=== PATIENT | male | born 1935 | race Caucasian/White ===

== ENCOUNTER → 2018-03-26 | Outpatient (CLI) | payer OTHER ==
[~2018-03-26] MED LIST: ASCO500 PO; ASPI81CH PO; Androgel2.5 GM TD; BAYER CHEWABLE81 MG PO; BETA.05TC TOP; CHOL10002 PO; CIPR500 PO; CLOB.05TC TOP; Chondroitin Su250 MG PO; DOCSEN PO; Fiber Therapy0.52 GM PO; GLUC500 PO; HYDR1TAB94 PO; Lysine1000 MG PO; TADA10TA PO; TESTOSTERONE; UBID100 PO; [UNRECOGNIZED DRUG - OTHER]
== END | disposition home or self-care (01) ==
LOC: PLD 14:05 → LAB SHORT 14:05
DX: C44.212 Basal cell carcinoma of skin of right ear and external auricular canal (principal)
CPT/HCPCS: 88305

== ENCOUNTER → 2018-04-08 | Outpatient (CLI) | payer OTHER | END | disposition home or self-care (01) | LOC: LAB SHORT 14:27 → PLD 14:27 | DX: C44.41 Basal cell carcinoma of skin of scalp and neck (principal) | CPT/HCPCS: 88305 ==

== ENCOUNTER 2018-06-25 07:58 | Day surgery (SDC) | payer OTHER ==
[~2018-06-25] VITALS: Ht 172.7 cm; Wt 84.9 kg
[~2018-06-25 07:58] MED LIST changes: +Cialis20 MG PO
[2018-06-25] MEDS ORDERED: GABA800 PO (08:52)
== END 2018-06-25 10:10 | disposition home or self-care (01) ==
LOC: ORSCSDS 07:58
PROVIDERS: Ophthalmology
PROC: 08RK3JZ Replacement of Left Lens with Synthetic Substitute, Percutaneous Approach (ICD-10-PCS; principal; 2018-06-25 09:30)
DX: H25.12 Age-related nuclear cataract, left eye (principal); Z79.899 Other long term (current) drug therapy
CPT/HCPCS: J2001; J2250; J3010; J3301; J7120; V2632

== ENCOUNTER → 2018-09-02 | Outpatient (CLI) | payer OTHER ==
[~2018-09-02] MED LIST changes: +GABA800 PO
[2018-09-02 10:45] LABS: BASOPHILS ABSOLUTE AUTO 0.06 K/mm3 (0.00-0.23); BASOPHILS PERCENT AUTO 0 % (0-2); EOSINOPHILS ABSOLUTE AUTO 0.13 K/mm3 (0.00-0.68); EOSINOPHILS PERCENT AUTO 1 % (0-6); Hematocrit 47.7 % (37.0-53.0); Hemoglobin 16.2 g/dL (13.5-17.5); IMMATURE GRAN ABSOLUTE AUTO 0.09 K/mm3 (0.00-0.10); IMMATURE GRAN PERCENT AUTO 1 % (0-1); LYMPHOCYTES ABSOLUTE AUTO 0.55 K/mm3 (0.84-5.20); LYMPHOCYTES PERCENT AUTO 3 % (21-46); MONOCYTES ABSOLUTE AUTO 0.99 K/mm3 (0.16-1.47); MONOCYTES PERCENT AUTO 6 % (4-13); Mean Corpuscular HGB 32.6 pg (26.0-34.0); Mean Corpuscular Volume 96 fL (80-100); Mean Platelet Volume 10.3 fL (9.1-12.4); NEUTROPHILS ABSOLUTE AUTO 15.92 K/mm3 (1.96-9.15); NEUTROPHILS PERCENT AUTO 90 % (41-73); Platelet Count 250 K/mm3 (150-400); RDW Standard Deviation 45.5 fL (35.1-46.3); Red Blood Cell Count 4.97 M/mm3 (4.30-5.90); White Blood Cell Count 17.74 K/mm3 (4.00-11.30)
[2018-09-02 10:55] LABS: Alanine Aminotransfer (ALT/SGP 25 U/L (12-78); Albumin, Blood 4.2 g/dL (3.4-5.0); Albumin/Globulin Ratio 1.1 (0.8-1.8); Alk Phos 94 U/L (40-126); Anion Gap 11 mmol/L (6-16); Aspartate Aminotrans (AST/SGOT 19 U/L (12-37); Bilirubin, Total 0.5 mg/dL (0.1-1.0); Blood Urea Nitrogen 14 mg/dL (8-24); Bun/Creatinine Ratio 15.1 (12.0-20.0); CO2, Blood 26 mmol/L (21-32); Calcium, Blood 9.8 mg/dL (8.5-10.1); Chloride, Blood 101 mmol/L (98-108); Creatinine, Blood 0.93 mg/dL (0.60-1.20); Glomerular Filtration Rate >60 (60-); Glucose, Blood 128 mg/dL (70-99); Sodium, Blood 138 mmol/L (136-145); Total Protein, Blood 8.2 g/dL (6.4-8.2)
== END | disposition home or self-care (01) ==
LOC: LAB EV 10:39 → LAB SHORT 10:39
PROVIDERS: Family Medicine
DX: R10.9 Unspecified abdominal pain (principal)
CPT/HCPCS: 80053; 83690; 85025

== ENCOUNTER → 2021-06-14 | Outpatient (CLI) | payer OTHER ==
[~2021-06-14] MED LIST changes: +B-100 COMPLEX100 MG PO; +CO Q10100 MG PO; +DONEPEZIL HCL5 M2 PO; +DULO60 PO; +DULOXETINE HCL60 M1 PO; +ROSUVASTATIN CAL5 MG PO; +SILD25T PO; +VITAMIN B125000 MC1 PO; +VITAMIN D325 MC3 PO
== END | disposition home or self-care (01) ==
LOC: PLD 07:55 → LAB SHORT 07:55
DX: C44.529 Squamous cell carcinoma of skin of other part of trunk (principal)
CPT/HCPCS: 88305

== ENCOUNTER 2023-02-11 09:48 | Inpatient (IN) | payer OTHER, MEDICARE ==
[2023-02-11] VITALS (14 sets, daily range): BP systolic 118–143; BP diastolic 63–76
[~2023-02-11] VITALS: Ht 172.7 cm; Wt 93.7 kg
[2023-02-11] MEDS ORDERED: GABA100 PO (10:00)
[2023-02-11] MEDS ORDERED: MEMANTINE HCL511 PO (10:00)
--- NOTE | 2023-02-11 13:07 | NUR ---
ARRIVAL SUMMARY PATIENT ARRIVED TO THE FLOOR ON [facility], TRANSFER FROM [facility] TO BED. PATIENT REPORTS LITTLE PAIN AT THIS TIME. VITALS TAKEN. FAMILY AT BEDSIDE.
--- NOTE | 2023-02-11 13:17 | NUR ---
CALLED [facility] [facility]- REPORTS THAT SURGEON WILL ROUND ON PATIENT.
[2023-02-11 13:21] LABS: Hematocrit 47.8 % (37.0-53.0); Hemoglobin 16.1 g/dL (13.5-17.5); Mean Corpuscular HGB Conc 33.7 g/dL (31.5-36.5); Mean Corpuscular Volume 95 fL (80-100); Mean Platelet Volume 10.7 fL (9.1-12.4); Platelet Count 235 K/mm3 (150-400); RDW Coefficient Variation 12.6 % (11.7-14.2); Red Blood Cell Count 5.03 M/mm3 (4.30-5.90); White Blood Cell Count 15.32 K/mm3 (4.00-11.30)
[2023-02-11 13:34] LABS: Prothrombin Time Results 10.5 Sec (9.7-11.5)
[2023-02-11 13:52] LABS: Albumin, Blood 3.6 g/dL (3.4-5.0); Bilirubin, Total 0.7 mg/dL (0.1-1.0); Bun/Creatinine Ratio 15.5 (12.0-20.0); Calcium, Blood 9.1 mg/dL (8.5-10.1); Creatinine, Blood 0.77 mg/dL (0.60-1.20); Globulin, Blood 3.7 g/dL (2.2-4.0); Potassium, Blood 4.3 mmol/L (3.5-5.5); Total Protein, Blood 7.3 g/dL (6.4-8.2)
--- NOTE | 2023-02-11 18:46 | NUR ---
PT ARRIVED BACK TO THE FLOOR AT APPROX 1805. BASELINE CONFUSION. A/O X3. NO PAIN REPORTED. VITAL SIGNS TAKEN. POD0 L UMU HIP- GAUZE AND TAPE IN PLACE, C/D/I. CURRENTLY AWAITING POST OP VOID. WILL REPORT TO ONCOMING RN.
[2023-02-12 02:29] VITALS: BP 124/66
[2023-02-12 06:11] LABS: BASOPHILS ABSOLUTE AUTO 0.02 K/mm3 (0.00-0.23); BASOPHILS PERCENT AUTO 0 % (0-2); EOSINOPHILS PERCENT AUTO 0 % (0-6); Hemoglobin 14.5 g/dL (13.5-17.5); IMMATURE GRAN PERCENT AUTO 1 % (0-1); LYMPHOCYTES ABSOLUTE AUTO 0.53 K/mm3 (0.84-5.20); LYMPHOCYTES PERCENT AUTO 3 % (21-46); MONOCYTES ABSOLUTE AUTO 0.89 K/mm3 (0.16-1.47); MONOCYTES PERCENT AUTO 5 % (4-13); Mean Corpuscular HGB 32.2 pg (26.0-34.0); Mean Corpuscular HGB Conc 34.5 g/dL (31.5-36.5); Mean Corpuscular Volume 93 fL (80-100); Mean Platelet Volume 11.1 fL (9.1-12.4); NEUTROPHILS ABSOLUTE AUTO 17.85 K/mm3 (1.96-9.15); NEUTROPHILS PERCENT AUTO 92 % (41-73); Platelet Count 225 K/mm3 (150-400); RDW Coefficient Variation 12.3 % (11.7-14.2); RDW Standard Deviation 42.5 fL (35.1-46.3); White Blood Cell Count 19.39 K/mm3 (4.00-11.30)
[2023-02-12 06:32] LABS: Albumin/Globulin Ratio 0.9 (0.8-1.8); Bilirubin, Total 0.6 mg/dL (0.1-1.0); Bun/Creatinine Ratio 19.2 (12.0-20.0); Calcium, Blood 8.4 mg/dL (8.5-10.1); Creatinine, Blood 0.89 mg/dL (0.60-1.20); Globulin, Blood 3.5 g/dL (2.2-4.0); Magnesium, Blood 2.1 mg/dL (1.6-2.4); Potassium, Blood 4.7 mmol/L (3.5-5.5); Total Protein, Blood 6.5 g/dL (6.4-8.2)
[2023-02-12 06:58] VITALS: BP 122/86
--- NOTE | 2023-02-12 07:56 | NUR ---
SHIFT SUMMARY PT HAS BEEN ABLE TO SLEEP WITH NO PROBLEMS, ORIENTED X3, VSS, 3 L/MIN VIA NC, SPO2 >95%, DRSG C/D/I, PT DENIES PAIN, CIRC WNL, REPORT GIVEN TO DAY RN, PT'S SON IN THE ROOM THIS AM, CIGHT IN REACH
[2023-02-12 16:28] VITALS: BP 108/62
--- NOTE | 2023-02-12 18:01 | NUR ---
SHIFT SUMMARY PT WAS ABLE TO WORK w/ BOTH PT & OT. HAS SAT UP IN CHAIR. SURG SITE WNL w/ MILD SWELLING. ICE PACK APPLIED TWICE DURING THIS SHIFT. DENIES PAIN THIS AFTERNOON BUT STILL ENCOURAGED TYLENOL.
[2023-02-12 19:27] VITALS: BP 112/57
--- NOTE | 2023-02-12 21:39 | NUR ---
SOB PT BED ALARM WENT OFF AND PT ATTEMPTING TO GET OOB. PT APPEARED TO BE SHORT OF BREATH, SPEAKING IN BROKEN SENTENCES, TACHYPNIC, AND AUDIBLE WHEEZING HEARD. SPO2 SPOT CHECKED AND WAS 91-94% ON RA. ASSISTED PT BACK INTO BED WITH HOB ELEVATED. PT WAS ABLE TO RECOVER WITHIN A FEW MINUTES. RT NOTIFIED OF PT STATUS AND THIS RN REQUESTED RT TO ASSESS PT. COPD PROTOCOL ORDER IN PLACE.
[2023-02-13 02:18] VITALS: BP 158/71
--- NOTE | 2023-02-13 04:46 | NUR ---
SHIFT SUMMARY S/P LEFT UMU HIP. AQUACEL DRESSING REMAINS CDI. ICE BAG TO HIP PRN. TYLENOL FOR PAIN PRN. UP TO SIDE OF BED TO STAND TO USE URINAL WITH 2 ASSIST USING FWW + GB. PT GETS VERY SOB WITH EXERTION. DOES TAKE A FEW MINUTES TO RECOVER ONCE AT REST. SATS STABLE ON RA. PT PLEASANTLY CONFUSED BUT REDIRECTED EASILY. BED ALARM IN PLACE.
[2023-02-13 05:51] LABS: BASOPHILS ABSOLUTE AUTO 0.04 K/mm3 (0.00-0.23); BASOPHILS PERCENT AUTO 0 % (0-2); EOSINOPHILS ABSOLUTE AUTO 0.35 K/mm3 (0.00-0.68); EOSINOPHILS PERCENT AUTO 2 % (0-6); Hematocrit 41.3 % (37.0-53.0); Hemoglobin 14.1 g/dL (13.5-17.5); IMMATURE GRAN ABSOLUTE AUTO 0.11 K/mm3 (0.00-0.10); IMMATURE GRAN PERCENT AUTO 1 % (0-1); LYMPHOCYTES ABSOLUTE AUTO 1.19 K/mm3 (0.84-5.20); LYMPHOCYTES PERCENT AUTO 8 % (21-46); MONOCYTES PERCENT AUTO 9 % (4-13); Mean Corpuscular HGB Conc 34.1 g/dL (31.5-36.5); Mean Corpuscular Volume 94 fL (80-100); Mean Platelet Volume 11.6 fL (9.1-12.4); NEUTROPHILS ABSOLUTE AUTO 12.04 K/mm3 (1.96-9.15); NEUTROPHILS PERCENT AUTO 80 % (41-73); Platelet Count 162 K/mm3 (150-400); RDW Coefficient Variation 12.8 % (11.7-14.2); Red Blood Cell Count 4.41 M/mm3 (4.30-5.90); White Blood Cell Count 15.13 K/mm3 (4.00-11.30)
[2023-02-13 05:52] LABS: Albumin, Blood 2.9 g/dL (3.4-5.0); Anion Gap 5 mmol/L (6-16); Blood Urea Nitrogen 21 mg/dL (8-24); Bun/Creatinine Ratio 23.8 (12.0-20.0); CO2, Blood 26 mmol/L (21-32); Calcium, Blood 8.1 mg/dL (8.5-10.1); Chloride, Blood 108 mmol/L (98-108); Creatinine, Blood 0.88 mg/dL (0.60-1.20); Glomerular Filtration Rate 84 (60-); Glucose, Blood 130 mg/dL (70-99); Phosphorus, Blood 2.3 mg/dL (2.5-4.9); Potassium, Blood 3.9 mmol/L (3.5-5.5); Sodium, Blood 139 mmol/L (136-145)
[2023-02-13 07:12] VITALS: BP 123/70
[2023-02-13 14:35] VITALS: BP 129/75
--- NOTE | 2023-02-13 15:54 | NUR ---
REPORT CALLED TO [facility]
--- NOTE | 2023-02-13 16:11 | NUR ---
TO REHAB VIA [facility]
== END 2023-02-13 16:11 | DRG 522 ==
LOC: ER 09:48 → SURS 11:17
PROVIDERS: Family Medicine; Orthopaedic Surgery; Student in an Organized Health Care Education/Training Program; ADMIT Hospitalist
PROC: 0SRS0J9 Replacement of Left Hip Joint, Femoral Surface with Synthetic Substitute, Cemented, Open Approach (ICD-10-PCS; principal; 2023-02-11 13:00)
DX: S72.002A Fracture of unspecified part of neck of left femur, initial encounter for closed fracture (principal); S50.312A Abrasion of left elbow, initial encounter; S50.311A Abrasion of right elbow, initial encounter; N40.0 Benign prostatic hyperplasia without lower urinary tract symptoms; E78.5 Hyperlipidemia, unspecified; W18.30XA Fall on same level, unspecified, initial encounter; Z96.641 Presence of right artificial hip joint; Z96.611 Presence of right artificial shoulder joint; J44.9 Chronic obstructive pulmonary disease, unspecified; G62.9 Polyneuropathy, unspecified; R41.3 Other amnesia; Z85.46 Personal history of malignant neoplasm of prostate; Z87.891 Personal history of nicotine dependence
CPT/HCPCS: 36415; 71045; 72170; 73502; 80053; 80069; 83735; 85025; 85027; 85610; 94760; 97110; 97116; 97162; 97166; 97530; 97535; 99284-25; A9270; C1713; C1776; J0171; J0690; J0735; J1100; J1170; J1650; J1885; J2405; J2704; J2795; J3010; J7060; J7120

== ENCOUNTER 2023-02-20 05:59 | Inpatient (IN) | payer OTHER, MEDICARE ==
[~2023-02-20] VITALS: Ht 172.7 cm; Wt 92.5 kg
[~2023-02-20 05:59] MED LIST changes: +GABA100 PO; +MEMANTINE HCL511 PO
[2023-02-20 06:51] LABS: BASOPHILS PERCENT AUTO 1 % (0-2); EOSINOPHILS ABSOLUTE AUTO 0.05 K/mm3 (0.00-0.68); EOSINOPHILS PERCENT AUTO 0 % (0-6); Hematocrit 41.5 % (37.0-53.0); Hemoglobin 14.1 g/dL (13.5-17.5); IMMATURE GRAN ABSOLUTE AUTO 0.19 K/mm3 (0.00-0.10); IMMATURE GRAN PERCENT AUTO 1 % (0-1); LYMPHOCYTES ABSOLUTE AUTO 0.44 K/mm3 (0.84-5.20); LYMPHOCYTES PERCENT AUTO 3 % (21-46); MONOCYTES ABSOLUTE AUTO 1.78 K/mm3 (0.16-1.47); MONOCYTES PERCENT AUTO 12 % (4-13); Mean Corpuscular HGB 32.2 pg (26.0-34.0); Mean Corpuscular Volume 95 fL (80-100); NEUTROPHILS ABSOLUTE AUTO 12.13 K/mm3 (1.96-9.15); NEUTROPHILS PERCENT AUTO 83 % (41-73); Platelet Count 310 K/mm3 (150-400); RDW Coefficient Variation 12.8 % (11.7-14.2); RDW Standard Deviation 44.1 fL (35.1-46.3); Red Blood Cell Count 4.38 M/mm3 (4.30-5.90); White Blood Cell Count 14.69 K/mm3 (4.00-11.30)
[2023-02-20 06:59] LABS: Albumin/Globulin Ratio 0.7 (0.8-1.8); Bilirubin, Direct 0.2 mg/dL (0.0-0.3); Bilirubin, Indirect 0.3 mg/dL (0.1-0.7); Bilirubin, Total 0.5 mg/dL (0.1-1.0); Bun/Creatinine Ratio 18.4 (12.0-20.0); Creatinine, Blood 1.03 mg/dL (0.60-1.20); Globulin, Blood 4.3 g/dL (2.2-4.0); Magnesium, Blood 2.3 mg/dL (1.6-2.4); Phosphorus, Blood 2.6 mg/dL (2.5-4.9); Potassium, Blood 4.9 mmol/L (3.5-5.5); Total Protein, Blood 7.3 g/dL (6.4-8.2)
[2023-02-20 07:02] LABS: Base Excess Venous -0.8 mmol/L; Bicarbonate Venous 22.8 mmol/L (24.0-30.0); PCO2 Venous 44.1 mmHg (38-42); pH Blood Venous 7.36 (7.34-7.37)
[2023-02-20] MEDS ORDERED: SULTRIDS PO (07:20)
[2023-02-20] MEDS ORDERED: DULO60 PO (07:21)
[2023-02-20 07:43] LABS: International Normalized Ratio 1.03; Prothrombin Time Results 10.8 Sec (9.7-11.5)
[2023-02-20 07:48] LABS: Influenza A, PCR NEGATIVE (NEGATIVE); Influenza B, PCR NEGATIVE (NEGATIVE); Resp Syncytial Virus, PCR NEGATIVE (NEGATIVE); SARS-Cov-2 (COVID-19) PCR, MMC NEGATIVE (NEGATIVE)
[2023-02-20 08:31] LABS: Source, Urine Clean Catch
[2023-02-20 08:38] LABS: Bilirubin, Urine Neg (Neg); Blood, Urine 3+ (Neg); Glucose Qualitative, Urine Neg (Neg); Ketones, Urine 3+ (Neg); Leukocyte Esterase, Urine Neg (Neg); Nitrite, Urine Neg (Neg); Protein, Urine 1+ (Neg); Urobilinogen, Urine NORM (Normal)
[2023-02-20 08:48] LABS: Appearance, Urine Hazy (Clear); Bacteria Not Seen /hpf; Color, Urine Yellow (P-Yellow); Squamous Epithelial Cells Rare /hpf (Few); White Blood Cells, Urine Not Seen /hpf (0-5)
[2023-02-20 10:20] LABS: Adenovirus Not Detected (NOT DETECT); Bordetella pertussis Not Detected (NOT DETECT); Chlamydophila pneumoniae Not Detected (NOT DETECT); Coronavirus 229E Not Detected (NOT DETECT); Coronavirus HKU1 Not Detected (NOT DETECT); Coronavirus NL63 Not Detected (NOT DETECT); Coronavirus OC43 Not Detected (NOT DETECT); Human Metapneumovirus Not Detected (NOT DETECT); Human Rhinovirus/Enterovirus Not Detected (NOT DETECT); Influenza A/2009-H1 Not Detected (NOT DETECT); Influenza A/H1 Not Detected (NOT DETECT); Influenza A/H3 Not Detected (NOT DETECT); Influenza B Not Detected (NOT DETECT); Mycoplasma pneumoniae Not Detected (NOT DETECT); Parainfluenza Virus 1 Not Detected (NOT DETECT); Parainfluenza Virus 2 Not Detected (NOT DETECT); Parainfluenza Virus 3 Not Detected (NOT DETECT); Parainfluenza Virus 4 Not Detected (NOT DETECT); Respiratory Syncytial Virus Not Detected (NOT DETECT); SARS-Cov-2 (COVID-19), BioFire Not Detected (NOT DETECT)
[2023-02-20 14:16] VITALS: BP 130/82
--- NOTE | 2023-02-20 18:43 | NUR ---
PT ARRIVED TO THE MEDICAL FLOOR TODAY FROM THE ER VIA GURNEY. PT IS A/OX3, SLOW TO RESPOND. PT WAS SHAKING VIGOROUSLY, ORAL TEMP WAS TAKEN PT WAS AFEBRILE. WARM BLANKETS APPLIED, PT CONTINUED TO SHAKE UNCONTROLABLY FOR A COUPLE HOURS. FAMILY WAS AT THE BEDSIDE. THE PT WAS ORIENTED TO THE CALL SYSTEM. THE PT WAS ASSISTED UP TO STAND BUT WAS TO WEAK TO MOVE INTO THE CHAIR AND OPTED TO LAT BACK DOWN IN THE BED. PT HAS A DEEP WOUND ON HIS LEFT ELBOW THAT WAS PACKED WITH TONJA FORM. PHOTOS WERE TAKEN AND PLACED IN THE CHART. WOUND WAS CLEANED AND REPACKED. CALL LIGHT IN REACH. BED IN THE LOW POSITION. BED ALARM ON. LEFT HIP DRESSING C/D/I
[2023-02-20 20:00] VITALS: BP 146/117
[2023-02-21] VITALS (26 sets, daily range): BP systolic 103–173; BP diastolic 57–91
--- NOTE | 2023-02-21 05:52 | NUR ---
DOCTOR NOTIFIED CALLED EN DUE TO PT STATING HE HAD NEW ONSET CHEST/ABD PAIN. CHEST XRAY ORDERED BY DR WONG AND EKG. NOTIFIED DR OF INCREASED RESPIRATIONS, BLOOD PRESSURE, AND HR. WILL CONTINUE TO MONITOR.
[2023-02-21 06:14] LABS: BASOPHILS ABSOLUTE AUTO 0.09 K/mm3 (0.00-0.23); BASOPHILS PERCENT AUTO 1 % (0-2); EOSINOPHILS ABSOLUTE AUTO 0.03 K/mm3 (0.00-0.68); EOSINOPHILS PERCENT AUTO 0 % (0-6); Hematocrit 40.9 % (37.0-53.0); Hemoglobin 14.2 g/dL (13.5-17.5); IMMATURE GRAN ABSOLUTE AUTO 0.33 K/mm3 (0.00-0.10); IMMATURE GRAN PERCENT AUTO 2 % (0-1); LYMPHOCYTES ABSOLUTE AUTO 1.47 K/mm3 (0.84-5.20); LYMPHOCYTES PERCENT AUTO 9 % (21-46); MONOCYTES ABSOLUTE AUTO 2.13 K/mm3 (0.16-1.47); MONOCYTES PERCENT AUTO 13 % (4-13); Mean Corpuscular HGB 32.3 pg (26.0-34.0); Mean Corpuscular HGB Conc 34.7 g/dL (31.5-36.5); Mean Corpuscular Volume 93 fL (80-100); NEUTROPHILS ABSOLUTE AUTO 12.35 K/mm3 (1.96-9.15); NEUTROPHILS PERCENT AUTO 75 % (41-73); Platelet Count 286 K/mm3 (150-400); RDW Coefficient Variation 13.2 % (11.7-14.2); RDW Standard Deviation 45.3 fL (35.1-46.3); Red Blood Cell Count 4.39 M/mm3 (4.30-5.90)
[2023-02-21 06:32] LABS: Albumin/Globulin Ratio 0.7 (0.8-1.8); Bilirubin, Total 0.5 mg/dL (0.1-1.0); Bun/Creatinine Ratio 21.7 (12.0-20.0); Calcium, Blood 9.1 mg/dL (8.5-10.1); Creatinine, Blood 1.06 mg/dL (0.60-1.20); Globulin, Blood 4.2 g/dL (2.2-4.0); Potassium, Blood 4.1 mmol/L (3.5-5.5); Total Protein, Blood 7.2 g/dL (6.4-8.2)
[2023-02-21 08:34] LABS: Bicarbonate Venous 21.6 mmol/L (24.0-30.0); PCO2 Venous 38.7 mmHg (38-42); pH Blood Venous 7.37 (7.34-7.37)
--- NOTE | 2023-02-21 08:40 | NUR ---
ARRIVAL TO PCU: Report receieved from [facility] RN. Patient arrived to PCU 08 via gurney and was slid to the bed. He is alert and oriented to self and only, he is not able to tell me his birthday. He is in sinus tach in the 120s-130s, blood pressure is a little high 150s systolic. He is very tachypnec with a RR in the 40s, he is using his accesory muscles to breathe. Biox initially was in the high 80s, we placed him on 4L o@ via NC and his saturations are up into the mid 90s. BT hypoactive, his abd is firm and tender to light palpation, he is grimacing with the stethescope touching his lower abd. He is slightly febrile at 99.8. is at the bedside, states patient fell and broke his hip at the beginning of january, he has been home and started having some altered mentation at home thus she brought him in.
--- NOTE | 2023-02-21 09:31 | NUR ---
Update: Dr. Farrell and Opal at the bedside to discuss the ABD CT results with the and patient. IVF and pain medicatinos given.
--- NOTE | 2023-02-21 09:46 | NUR ---
ASSUMED CARE OF THIS PT THIS MORNING. PT APPEARED SHORT OF BREATH. IV WAS INFULTRATED. PG WAS PLACED. SPOKE TO THE PROVIDER WHO CAME AND SAW THE PT. PT WAS TRANSFERED TO PCU, REPORT GIVEN.
--- NOTE | 2023-02-21 10:27 | NUR ---
ASSUMED CARE REPORT RECEIVED FROM JANKI NAJERA. PT RESTING IN BED, ALERT, ORIENTED TO SELF ONLY, FOLLOWS SIMPLE DIRECTIONS. RR IN THE 30S, SHALLOW AND LABORED, SPO2 LOW 90S ON 4L/NC. HR IRREGULAR, RATE IN THE 130S AT REST, 150S WITH JUST RAISING HIS ARM FOR A DRESSING CHANGE ON HIS L ELBOW. L ELBOW HAS SMALL 2 CM WOUND THAT WAS PACKED WITH ISOFORM. WOUND BED AND EDGES CLEAN, PINK. WOUND CLEANSED WITH WOUND SPRAY, REPACKED AND COVERED WITH BANDAID. ABD MODERATELY DISTENDED, TIGHT. DRESSING ON L HIP, REPORTS IT WAS CHANGED YESTERDAY. ABOUT 10 MINUTES AFTER GETTING REPORT, DAY SURGERY NURSES ARRIVED TO TAKE PT DOWN FOR SURGERY. PT'S AND SON FOLLOWED HIM THERE.
--- NOTE | 2023-02-21 10:44 | NUR ---
PT HAS POWERGLIDE TO RIGHT UPPER ARM THAT FLUSHES WELL AND FLOWS TO GRAVITY. PT ALSO HAS 20G IV TO RIGHT WRIST THAT FLUSHES WELL.
--- NOTE | 2023-02-21 10:53 | NUR ---
1026 PT BROUGHT FROM FLOOR TO DAY SURGERY FOR PROCEDURE. PT ON TELEMETRY AND ON 4L SUPPLEMENTAL O2 VIA NC. AND SON AT BEDSIDE.
--- NOTE | 2023-02-21 14:36 | NUR ---
Pt received back from OR. Pt opens eyes to voice, but does not speak. Appears to weakly try to open his mouth when asked when doing oral care. Pt on 5l/nc, lungs are clear. rr 22, breathing still shallow and a little labored. SR with rate in the low 100s. Abdomen distended, 2 ronal drains with ss drainage. 4 small incisions, c/d/i. no bowel tones auscultated at this time. iv fluids infusing per orders. madden with cl yellow urine. Pt's at the bedside and has been updated.
[2023-02-21 14:59] LABS: Source, Urine Foley catheter
[2023-02-21 15:06] LABS: Appearance, Urine Hazy (Clear); Bilirubin, Urine Neg (Neg); Blood, Urine 4+ (Neg); Color, Urine Yellow (P-Yellow); Glucose Qualitative, Urine Neg (Neg); Ketones, Urine Neg (Neg); Leukocyte Esterase, Urine Neg (Neg); Nitrite, Urine Neg (Neg); Protein, Urine 3+ (Neg); Specific Gravity, Urine 1.015 (1.003-1.022); Urobilinogen, Urine 3+ (Normal)
[2023-02-21 15:30] LABS: Bacteria Few /hpf; Red Blood Cells, Urine 25-50 /hpf (0-2); Squamous Epithelial Cells Rare /hpf (Few)
[2023-02-21 15:31] LABS: Amorphous Light (0-Heavy)
--- NOTE | 2023-02-21 17:19 | NUR ---
SHIFT SUMMARY PT WENT TO OR FOR DUODENAL ULCER REPAIR TODAY AND HAS BEEN RESTING IN HIS BED WITH HIS EYES CLOSED SINCE HIS RETURN. HE OPENS HIS EYES WHEN HIS NAME IS CALLED AND SHAKES HIS HEAD WHEN ASKED IF HE IS IN PAIN. HE HAS 4 INCISIONS ON HIS ABDOMEN THAT ARE C/D/I. 2 CHICO DRAINS WITH SANGUINOUS DRAINAGE. NGT SUTURED IN PLACE WITH SMALL AMT OF LIGHT BILIOUS FLUID IN THE TUBING. LUNGS ARE CLEAR, OXYGEN HAS BEEN TITRATED DOWN FROM 5L TO 3L/NC. HR IN THE LOW 100S. PT'S HR OCCASIONALLY JUMPS UP TO THE 150S FOR LESS THAN A MINUTE, THEN BACK. PAIN MEDICAITON GIVEN WHEN THIS STARTED HAPPENING IN CASE PT WASN'T VERBALIZING HIS PAIN AND IT DOES SEEM TO BE HAPPENING LESS SINCE THEN. TREVINO WITH DARK YELLOW URINE. PT'S AND SONS HAVE BEEN AT THE BEDSIDE AND HAVE BEEN UPDATED BY NURSING STAFF AND DR. ZHU.
--- NOTE | 2023-02-21 19:45 | NUR ---
ASSUMED CARE AT 1900 PATIENT IS ALERT AND ORIENTED X SELF AND PLACE, SLOW TO RESPOND AND CONFUSED OTHERWISE, HX DEMENTIA. 02 SATS 93% ON 1L VIA NC. RR 20s-30s, LS DIMINISHED. HR SR-ST 90s-130s, BP STABLE. NG TO LIS WITH SMALL AMOUNT OF GREEN BILE. TWO CHICO DRAINS TO ABD WITH SANGUINOUS OUTPUT. LEFT HIP AND ELBOW DRESSINGS C/D/I. TREVINO PATENT AND DRAINING TO GRAVITY. PATIENT REPOSITIONED AND MEDICATED FOR PAIN PER EMAR. CALL LIGHT IN REACH
[2023-02-22] VITALS (18 sets, daily range): BP systolic 95–143; BP diastolic 54–82
[2023-02-22 03:58] LABS: Hematocrit 34.3 % (37.0-53.0); Hemoglobin 11.7 g/dL (13.5-17.5); Mean Corpuscular HGB 32.1 pg (26.0-34.0); Mean Corpuscular HGB Conc 34.1 g/dL (31.5-36.5); Mean Corpuscular Volume 94 fL (80-100); Mean Platelet Volume 9.7 fL (9.1-12.4); Platelet Count 204 K/mm3 (150-400); RDW Coefficient Variation 13.3 % (11.7-14.2); RDW Standard Deviation 45.5 fL (35.1-46.3); Red Blood Cell Count 3.65 M/mm3 (4.30-5.90); White Blood Cell Count 20.96 K/mm3 (4.00-11.30)
[2023-02-22 04:20] LABS: Albumin, Blood 1.9 g/dL (3.4-5.0); Albumin/Globulin Ratio 0.5 (0.8-1.8); Calcium, Blood 7.7 mg/dL (8.5-10.1); Creatinine, Blood 0.94 mg/dL (0.60-1.20); Globulin, Blood 3.5 g/dL (2.2-4.0); Potassium, Blood 4.3 mmol/L (3.5-5.5); Total Protein, Blood 5.4 g/dL (6.4-8.2)
--- NOTE | 2023-02-22 06:00 | NUR ---
SHIFT SUMMARY PATIENT REMAINS ALERT AND ORIENTED X SELF AND PLACE. SLEPT MOST THE NIGHT. REMIANS ON 1-2L VIA NC. HR SR 90s, OCCASIONALLY HR 130s BUT DOES NOT SUSTAIN. BP STABLE. NG TO LIS, 100 MLS GREEN BILE OUT THIS SHIFT. CHICO DRAIN X2 TO ABD, SEROSANGINEUOUS OUTPUT. TREVINO PATENT AND DRAINING TO GRAVITY. REPOSITIONED Q2 HOURS. CALL LIGHT IN REACH
--- NOTE | 2023-02-22 16:00 | NUR ---
MET WITH PATIENT AND HIS MATTHEW. HE REPOTED THAT HE WAS NOT EXPERIENCING ANY PAIN OR NAUSEA AT THIS TIME. HE REPORTED NO SHORTENSS OF BREATH. DR. LEVIN CAME IN DRUING MY VISIT AND DISCUSSED PLAN OF CARE WITH VAMSHI AND . THEY ARE GOING TO LEAVE THE NG TUBE IN FOR SEVERAL MORE DAYS AND THEN REASSESS. VAMSHI WANTS TO EAT AND HE WANTS TO GO HOME. DISCUSSED THE ADDITION OF NUTRITION AND ORDERING MANY OF HIS HOME MEDICATIONS POSSIBLE FOR ALTERNATE ROUTES DUE TO HIS NPO STATUS. DISCUSSED WITH THE ABOUT HER SUPPORT SYSTEM AND MAKING SURE SHE IS ABLE TO TAKE CARE OF HERSELF WHILE CARING FOR HER
[2023-02-22 18:20] LABS: Magnesium, Blood 1.8 mg/dL (1.6-2.4); Phosphorus, Blood 3.2 mg/dL (2.5-4.9)
--- NOTE | 2023-02-22 19:09 | NUR ---
Shift summary. Pt rested in bed throughout shift. Pt has hx of dementia, oriented to self/surroundings but forgetful. Pt 02 via NC at 2 L/min currently. Lauro drains x2 in place, R/abdomen. PG in LEIGH ANN and DAVID, PIV in r/wrist. LR infusing at 150/hr. NG tube in place, to low intermittent suction, sutures securing tube. Street draining to gravity. HR labile during shift, rate slowly increased and frequency of tachycardic episodes. Order obtained for diltiazem drip, to be started by nightshift. See chart for further details, report given to nightshift RN.
--- NOTE | 2023-02-22 21:15 | NUR ---
ASSUMED CARE AT 1900 PATIENT IS ALERT AND ORIENTED X SELF AND THAT HE IS IN THE HOSPITAL. CONFUSED OTHERWISE WITH HX DEMENTIA. NEEDS REDIRECTIONS AND LINES HIDDEN SO PATIENT DOES NOT PULL ON THEM. 02 SATS 93% ON 2L NC, TACHYPNIEC WITH RR 20s, LS DIMINISHED. HR ST 110-150s, CARDIZEM DRIP INF. BP STABLEM DENIES CP/PRESSURE. NG TO LIS WITH SMALL AMOUNT OF GREEN BILE, SUTURED IN PLACE. TREVINO NOT PATENT AT START OF SHIFT, BLADDER SCAN DONE AND TREVINO CHANGED OUT, PATENT AND DRAINING YELLOW WITH SOME RED, JOHN UA SENT. LEFT ELBOW PACKED AND BANDAGED PLACED OVER LACERATION. LEFT HIP BANDAGE CHANGED AND PHOTO IN CHART. CHICO DRAIN X2 IN RIGHT ABD, DRAINING RED AND SOME BILE. BED BATH DONE. CALL LIGHT IN REACH.
[2023-02-22 21:28] LABS: Source, Urine Foley catheter
[2023-02-22 21:33] LABS: Bilirubin, Urine Neg (Neg); Blood, Urine 5+ (Neg); Glucose Qualitative, Urine Neg (Neg); Ketones, Urine 3+ (Neg); Leukocyte Esterase, Urine 1+ (Neg); Nitrite, Urine Neg (Neg); Protein, Urine 3+ (Neg); Specific Gravity, Urine 1.015 (1.003-1.022); Urobilinogen, Urine 3+ (Normal)
[2023-02-22 21:49] LABS: Appearance, Urine Cloudy (Clear); Color, Urine Yellow (P-Yellow)
[2023-02-22 21:50] LABS: Bacteria Rare /hpf; Squamous Epithelial Cells Few /hpf (Few); White Blood Cells, Urine TNTC /hpf (0-5)
[2023-02-22 22:30] LABS: Base Excess Venous 3.5 mmol/L; PCO2 Venous 47.6 mmHg (38-42); pH Blood Venous 7.39 (7.34-7.37)
--- NOTE | 2023-02-22 23:20 | NUR ---
UPDATED ON PATIENTS TRANSFER TO U 13 ATT APPROX 2300. CONFIRMED PATIENT TAKES TWO INHALERS ONE IS ALBUTEROL AND SHE IS UNSURE OF THE OTHER. TRUDI SHEARER ASSUMD CARE OF PATIENT
[2023-02-23] VITALS (20 sets, daily range): BP systolic 104–144; BP diastolic 44–95
[2023-02-23 04:48] LABS: BASOPHILS ABSOLUTE AUTO 0.03 K/mm3 (0.00-0.23); BASOPHILS PERCENT AUTO 0 % (0-2); EOSINOPHILS PERCENT AUTO 1 % (0-6); Hematocrit 33.3 % (37.0-53.0); Hemoglobin 11.4 g/dL (13.5-17.5); IMMATURE GRAN ABSOLUTE AUTO 0.19 K/mm3 (0.00-0.10); IMMATURE GRAN PERCENT AUTO 1 % (0-1); LYMPHOCYTES ABSOLUTE AUTO 0.78 K/mm3 (0.84-5.20); LYMPHOCYTES PERCENT AUTO 4 % (21-46); MONOCYTES PERCENT AUTO 4 % (4-13); Mean Corpuscular HGB 32.4 pg (26.0-34.0); Mean Corpuscular HGB Conc 34.2 g/dL (31.5-36.5); Mean Corpuscular Volume 95 fL (80-100); Mean Platelet Volume 10.3 fL (9.1-12.4); NEUTROPHILS PERCENT AUTO 91 % (41-73); Platelet Count 222 K/mm3 (150-400); RDW Coefficient Variation 13.3 % (11.7-14.2); RDW Standard Deviation 46.9 fL (35.1-46.3); Red Blood Cell Count 3.52 M/mm3 (4.30-5.90)
[2023-02-23 05:04] LABS: Alanine Aminotransfer (ALT/SGP 327 U/L (12-78); Albumin, Blood 1.8 g/dL (3.4-5.0); Albumin/Globulin Ratio 0.5 (0.8-1.8); Alk Phos 59 U/L (50-136); Anion Gap 3 mmol/L (6-16); Aspartate Aminotrans (AST/SGOT 339 U/L (12-37); Blood Urea Nitrogen 13 mg/dL (8-24); CO2, Blood 30 mmol/L (21-32); Chloride, Blood 105 mmol/L (98-108); Creatinine, Blood 0.76 mg/dL (0.60-1.20); Globulin, Blood 3.6 g/dL (2.2-4.0); Glomerular Filtration Rate 88 (60-); Glucose, Blood 130 mg/dL (70-99); Magnesium, Blood 2.1 mg/dL (1.6-2.4); Phosphorus, Blood 2.8 mg/dL (2.5-4.9); Potassium, Blood 3.8 mmol/L (3.5-5.5); Sodium, Blood 138 mmol/L (136-145); Total Protein, Blood 5.4 g/dL (6.4-8.2); Triglycerides 86 mg/dL (30-160)
--- NOTE | 2023-02-23 05:17 | NUR ---
SHIFT SUMMARY PT TRANSFERRED TO PCU AROUND 2300, AT WHICH TIME THIS RN ASSUMED CARE, REPORT TAKEN FROM HENRY SHEARER IN THE ICU. PT ALERT AND ORIENTED TO SELF AND PLACE ONLY. NEEDS CONSTANT REDIRECTION. PLEASANTLY CONFUSED. SITTER AT BEDSIDE. PT CONTINUES TO BE IN AFIB WITH HR 110-120'S; CARDIZEM INFUSING PER EMAR; TITRATING NEEDED. BP STABLE. ON 2-3L VIA NC TO MAINTAIN SPO2 >92%. OCCASIONAL WHEEZING NOTED. PRN BREATHING TREATMENTS. NGT PATENT AND CONNECTED TO LIS; MINIMAL BROWN/GREEN OUTPUT NOTED. SEROSANGUINOUS OUTPUT NOTED IN X2 CHICO DRAINS. DRESSING IN PLACE OVER DRAINS D/T LEAKAGE AROUND INSERTION SITES AND TO KEEP PT FROM BEING ABLE TO ACCESS DRAINS EASIER. TREVINO CATHETER PATENT AND DRAINING YELLOW/RED URINE; URINE NOW MORE YELLOW THAN RED THAN PREVIOUSLY IN THE SHIFT. CLINIMIX INFUSING PER EMAR. PT DENIES PAIN BUT APPEARS AGGITATED AT TIMES. PT WAS AWAKE FOR MOST OF THIS SHIFT. EASILY REDIRECTABLE WITH VERBAL REMINDERS OF IMPORTANCE OF LINES/TUBES. REPOSITIONING Q2HRS. BED IN LOWEST POSITION AND CALL LIGHT WITHIN REACH. THIS RN WILL REPORT TO DEREK GILLIAM RN.
--- NOTE | 2023-02-23 18:05 | NUR ---
SHIFT SUMMARY PT ALERT AND ORIENTED TO PLACE AND SELF. VSS. PT CONFUSED AND NEEDS CONTINUOUS REDIRECTION. 1:1 SITTER AT BEDSIDE. PT PLEASENT. REPOSITIONED Q2 HOURS. DR. LEVIN OK'D PT TO BE UP IN CHAIR. SPOKE WITH HOSPITALIST REGAURDING PT CONTSULT, PER DR. BLACKBURN WILL SPEAK WITH TEAM AND CONSIDER PT CONSULT FOR TOMORROW. RHYTHM SINUS TACHYCARDIA RATE 110'S. CARDIZEM DRIP INFUSING AT 10MG/HR. TREVINO DRAINING TO GRAVITY. NG WITH MINIMAL CLEAR DRAINAGE. SPO2>92% ON 4L O2 VIA NC. ABD PADS CHANGED COVERING DRAINS. PT OCCASIONALLY AGITATED INCREASING RESPIRATIONS BUT WITH REDIRECTION AND THERAPEUTIC TECHNIQUES PT ABLE TO CALM. DENTAL HYGEINE CONSULT PLACED. FAMILY AT BEDSIDE THROUGHOUT SHIFT. LASHAE DRAINS X2 DRAINING SEROSANGUINEOUS FLUID. NO ACUTE CHANGES.
[2023-02-24] VITALS (7 sets, daily range): BP systolic 108–130; BP diastolic 54–65
[2023-02-24 04:35] LABS: BASOPHILS ABSOLUTE AUTO 0.06 K/mm3 (0.00-0.23); BASOPHILS PERCENT AUTO 0 % (0-2); EOSINOPHILS ABSOLUTE AUTO 0.21 K/mm3 (0.00-0.68); EOSINOPHILS PERCENT AUTO 1 % (0-6); Hematocrit 31.6 % (37.0-53.0); Hemoglobin 10.7 g/dL (13.5-17.5); IMMATURE GRAN ABSOLUTE AUTO 0.33 K/mm3 (0.00-0.10); IMMATURE GRAN PERCENT AUTO 2 % (0-1); LYMPHOCYTES ABSOLUTE AUTO 0.73 K/mm3 (0.84-5.20); LYMPHOCYTES PERCENT AUTO 4 % (21-46); MONOCYTES ABSOLUTE AUTO 1.21 K/mm3 (0.16-1.47); MONOCYTES PERCENT AUTO 6 % (4-13); Mean Corpuscular HGB 31.9 pg (26.0-34.0); Mean Corpuscular HGB Conc 33.9 g/dL (31.5-36.5); Mean Corpuscular Volume 94 fL (80-100); Mean Platelet Volume 10.3 fL (9.1-12.4); NEUTROPHILS ABSOLUTE AUTO 18.55 K/mm3 (1.96-9.15); NEUTROPHILS PERCENT AUTO 88 % (41-73); Platelet Count 255 K/mm3 (150-400); RDW Coefficient Variation 13.2 % (11.7-14.2); RDW Standard Deviation 45.3 fL (35.1-46.3); Red Blood Cell Count 3.35 M/mm3 (4.30-5.90); White Blood Cell Count 21.09 K/mm3 (4.00-11.30)
--- NOTE | 2023-02-24 05:05 | NUR ---
SHIFT SUMMARY NO ACUTE CHANGES OVERNIGHT. PT CONTINUES TO BE PLEASANTLY CONFUSED. ORIENTED TO SELF, FAMILY, AND PLACE. NEEDS REDIRECTION ABOUT WHY HE IS IN THE HOSPITAL AND THE NEED FOR DRAINS/TUBES/LINES. SITTER AT BEDSIDE T/O THIS SHIFT. ST ON MONITOR WITH PAC'S. CARDIZEM GTT INFUSING AT 5MG/HR AT THIS TIME. TITRATING APPROPRIATE. HR 100-110'S. BP STABLE. ON 3L VIA NC WITH SPO2 >92%. AFEBRILE. REPOSITIONING Q2HRS; PT DOES WELL REPOSITIONING SELF IN BED WITH MINIMAL ASSISTANCE. X2 CHICO DRAINS PATENT AND DRAINING SMALL AMOUNT OF SEROSANGUINOUS DRAINAGE. TREVINO CATHETER DRAINING APRIL URINE TO GRAVITY. NGT TO LIS, MINIMAL LIGHT MACKEY COLORED OUTPUT NOTED IN TUBE, NONE IN CANNISTER. ORAL CARE DONE Q4HRS. FREQUENT MOUTH MOISTURIZER USED D/T PT BREATHING THROUGH MOUTH. PRODUCTIVE THICK YELLOW SPUTUM NOTED WITH COUGHING. SCD'S IN PLACE. PT APPEARED TO HAVE SLEPT MOST OF THIS SHIFT AND HAS BEEN LESS AGGITATED THAN PREVIOUS NOC SHIFT WITH THIS RN. BED IN LOWEST POSITION AND CALL LIGHT WITHIN REACH. THIS RN WILL REPORT TO ONCOMING DAYSHIFT RN.
[2023-02-24 05:15] LABS: Albumin, Blood 1.7 g/dL (3.4-5.0); Albumin/Globulin Ratio 0.5 (0.8-1.8); Bilirubin, Total 1.1 mg/dL (0.1-1.0); Bun/Creatinine Ratio 15.3 (12.0-20.0); Calcium, Blood 7.9 mg/dL (8.5-10.1); Creatinine, Blood 0.78 mg/dL (0.60-1.20); Globulin, Blood 3.5 g/dL (2.2-4.0); Magnesium, Blood 2.2 mg/dL (1.6-2.4); Phosphorus, Blood 3.5 mg/dL (2.5-4.9); Potassium, Blood 3.7 mmol/L (3.5-5.5); Total Protein, Blood 5.2 g/dL (6.4-8.2)
--- NOTE | 2023-02-24 18:41 | NUR ---
SHIFT SUMMARY PT AXO TO SELF, FAMILY, AND PLACE. PT REMAINS CONFUSED BUT IS PLEASANT AND OBEYS COMMANDS. VSS. RHYTHM SINUS TACH WITH PACs HR 100-110s. PT SLEPT MAJORITY OF THE DAY AWAKENING OCASSIONALLY AND INTERACTED WITH FAMILY. PHYSICAL THERAPY SAT PT TO EOB AND REPORTED PT DID NOT TOLERATED WELL D/T PAIN, PHYSICAL THERAPY REPORTED WILL BE BACK TOMORROW TO TRY AGAIN. PT DENIES PAIN WHILE AT REST. PROVIDER OK'D REMOVAL OF CATHETER BLADDER TRAINING IN PROCESS CATHETER CLAMPED AT 1645 PT REPORTS NEED TO URINATE AT 1850. WILL RECLAMP AFTER FINISH DRAINING. DRESSINGS CHANGED ON J TUBES X2 IN RUQ. NG WITH YELLOW DRAINAGE TO LOW INTERMITTENT SUCTION.
--- NOTE | 2023-02-24 23:47 | NUR ---
UPDATE MD NOTIFIED OF PT'S INCREASE IN WOB. PT'S OXYGEN SATURATION OVER 92% ON 2 L. PT IN A POSITIVE FLUID BALANCE. NG TUBE CONT TO DRAIN YELLOW FLUID. PLAN FOR CHEST X RAY AND BNP. PT REMAINS 1:1 WITH SITTER
[2023-02-25] VITALS (8 sets, daily range): BP systolic 123–150; BP diastolic 62–121
[2023-02-25 00:23] LABS: BASOPHILS ABSOLUTE AUTO 0.07 K/mm3 (0.00-0.23); BASOPHILS PERCENT AUTO 0 % (0-2); EOSINOPHILS ABSOLUTE AUTO 0.48 K/mm3 (0.00-0.68); EOSINOPHILS PERCENT AUTO 2 % (0-6); Hematocrit 34.2 % (37.0-53.0); Hemoglobin 11.5 g/dL (13.5-17.5); IMMATURE GRAN ABSOLUTE AUTO 0.37 K/mm3 (0.00-0.10); IMMATURE GRAN PERCENT AUTO 2 % (0-1); LYMPHOCYTES ABSOLUTE AUTO 0.87 K/mm3 (0.84-5.20); LYMPHOCYTES PERCENT AUTO 4 % (21-46); MONOCYTES ABSOLUTE AUTO 1.91 K/mm3 (0.16-1.47); MONOCYTES PERCENT AUTO 9 % (4-13); Mean Corpuscular HGB 31.6 pg (26.0-34.0); Mean Corpuscular HGB Conc 33.6 g/dL (31.5-36.5); Mean Corpuscular Volume 94 fL (80-100); Mean Platelet Volume 10.3 fL (9.1-12.4); NEUTROPHILS ABSOLUTE AUTO 17.18 K/mm3 (1.96-9.15); NEUTROPHILS PERCENT AUTO 82 % (41-73); Platelet Count 310 K/mm3 (150-400); RDW Coefficient Variation 12.9 % (11.7-14.2); RDW Standard Deviation 44.6 fL (35.1-46.3); Red Blood Cell Count 3.64 M/mm3 (4.30-5.90); White Blood Cell Count 20.88 K/mm3 (4.00-11.30)
[2023-02-25 00:44] LABS: Albumin, Blood 1.7 g/dL (3.4-5.0); Albumin/Globulin Ratio 0.4 (0.8-1.8); Bun/Creatinine Ratio 16.2 (12.0-20.0); Calcium, Blood 8.1 mg/dL (8.5-10.1); Creatinine, Blood 0.74 mg/dL (0.60-1.20); Globulin, Blood 4.2 g/dL (2.2-4.0); Magnesium, Blood 2.2 mg/dL (1.6-2.4); Phosphorus, Blood 3.2 mg/dL (2.5-4.9); Potassium, Blood 3.7 mmol/L (3.5-5.5); Total Protein, Blood 5.9 g/dL (6.4-8.2)
--- NOTE | 2023-02-25 06:26 | NUR ---
SHIFT SUMMARY PT ALERT AND ORIENTED TO SELF. PT 1:1 WITH SITTER TO REDUCE RISK OF PULLING AT LINES. NG TUBE TO LIS. DRAINING YELLOW FLUID. NG TUBE CARE COMPLETED PER ORDER FROM DR. LEVIN. PT TURNED Q 2 HRS. BLADDER TRAINING T/O SHIFT FOR CATH REMOVAL. DRAINING YELLOW URINE. PT'S WOB DECREASED AFTER BREATHING TX. CHICO DRAINS DRAINING MINIMAL OUTPUT. SEE EHR FOR OUTPUT. PT REMAINS ON 2L VIA NC, OXYGEN SATURATION ABOVE 92%. BP STABLE. HR STABLE. PT REMAINS ON 5MG OF CARDIZEM GTT PER ORDER. HR 90'S-110'S. NO CP OR PRESSURE REPORTED. WILL CONT TO MONITOR UNTIL REPORT GIVEN TO TAWANA RN.
--- NOTE | 2023-02-25 18:00 | NUR ---
SHIFT SUMMARY: PT ALTERNATES BETWEEN NAPS AND ALERTNESS, WAKES EASILY TO STAFF IN ROOM, ORIENTED TO SELF, FAMILY, LOCATION. PT COOPERATIVE W/CARE AND ANSWERING QUESTIONS APPROPRIATELY. PT DENIES SOB, RESPIRATIONS EVEN AND UNLABORED, OCCASIONAL NONPRODUCTIVE COUGH. SOME AUDIBLE WHEEZES WERE HEARD THIS EVENING, RT TO ROOM FOR PRN BREATHING TX W/MINIMAL IMPROVEMENT TO WHEEZES, RESPIRATIONS CONTINUE TO BE EVEN AND UNLABORED/PT DENIES SOB, PROVIDER NOTIFIED VIA TELEPHONE RE: SYMPTOMS AND FLUID BALANCE/RECENT WEIGHTS, NO NEW ORDERS RECEIVED. AFIB ON MONITOR THIS SHIFT, RATE 90s-110, PT DENIES CP. CARDIZEM GTT CONTINUES AT 5 MG/HR. NGT ASSESSED PER ORDERS, CONTINUES PATENT, SET TO LIS AND DRAINING MINIMAL AMOUNT OF YELLOW FLUID. CHICO DRAINS PATENT, DRAINING MINIMAL AMOUNT OF YELLOW FLUID. INDWELLING TREVINO CONTINUES IN PLACE, EXPLORED OPTION OF DC-ing BUT KEPT IN PLACE UNTIL MORE CLARITY ON FURTHER TREATMENT. PT UP TO BS W/PHYSICAL THERAPY, 2 PERSON ASSIST, TOLERATED FOR APPROX 5-10 MIN THEN C/O FEELING LIGHTHEADED AND ASSISTED BACK TO BED WHERE HE REPORTED FEELING IMPROVED. DRESSING TO L HIP CHANGED THIS SHIFT. L ELBOW DRESSING C/D/I. WILL CONTINUE TO MONITOR AND TREAT ACCORDINGLY UNTIL CHANGE OF SHIFT.
[2023-02-26] VITALS (14 sets, daily range): BP systolic 109–137; BP diastolic 53–71
--- NOTE | 2023-02-26 02:18 | NUR ---
DISCUSSION WITH NARRATIVE WRITER KRISSY. PT HAS HAD CARDIZEM IV RUNNING @ 15 MLS/HR FOR SEVERAL HOURS NOW. PT MOSTLY MAINTAINS BELOW 110BPM WITH OCCASIONAL BRIEF SPIKES TO 110s-120s. HAS MOSTLY MAINTAINED 90s-100s. INQUIRED ABOUT POSSIBILITY OF CHANGING RATE OF CARDIZEM. PER RECOMMENDATION FROM MICHAEL, IF PT HR BEGINS TO MAINTAIN >120 WE CAN INCREASE RATE, IF RATE BEGINS TO HIT <90 CONSISTENTLY WE CAN DECREASE RATE. FOR NOW, NO NEED FOR ADJUSTMENT. BP STABLE. CONTINUING TO MONITOR.
--- NOTE | 2023-02-26 04:50 | NUR ---
SHIFT SUMMARY. PT HAS BEEN GENERALLY DOING WELL THIS SHIFT, NO ACUTE CHANGES. REMAINS SOMEWHAT CONFUSED. EARLY IN SHIFT, WAS BECOMING INCREASINGLY ACTIVE/AGITATED PULLING AT LINES AND ATTEMPTING OOB TELLING STAFF HE NEEDS TO GO HOME TO TAKE CARE OF HIS DOGS. DIFFICULT TO REDIRECT BUT REMAINED VERY PLEASANT THROUGHOUT. ADMINISTERED IM ZYPREXA 5 MG AND SINCE THAT TIME PT HAS BEEN ABLE TO REST COMFORTABLY IN BED, SPORADICALLY WAKING AND FIDGETING WITH LINES BUT GENERALLY ABLE TO SLEEP WELL. Q2 REPOSITIONS. 1:[address] FOR SAFETY. CARDIZEM DRIP HAS BEEN ACTIVE THROUGHOUT SHIFT, PT NOW MAINTAINING IN 90s-100s WITH SPORADIC BRIEF SPIKES INTO 110s-120s. HAS BEEN RUNNING AT 15 MG/HR THROUGHOUT MOST OF SHIFT, BP AND OTHER VITAL SIGNS HAVE REMAINED STABLE. DISCUSSION WITH BRUSH POLISHER KRISSY REGARDING CARDIZEM DRIP, SEE RELATED NOTE FOR EXPANDED DETAILS. TITRATED DOWN TO 10 MG/HR AT ~0450 AND PT CONTINUES TO MOSTLY HOLD IN 90s-100s. NO PAIN REPORTED THIS SHIFT. DRAINS CONTINUE TO FUNCTION PROPERLY. TREVINO CATHETER REMAINS IN PLACE, BLADDER MANAGEMENT PROCESS INTERVENTION COMPLETED PER PROTOCOL. NG TUBE REMAINS IN PLACE ON INTERMITTENT SUCTION. CLINIMEX RUNNING THROUGHOUT SHIFT. ABX ADMINISTERED ON SCHEDULE WITHOUT DIFFICULTY. BED LOCKED IN LOWEST POSITION. 1:[address] TO MAINTAIN SAFETY. CONTINUING TO MONITOR.
[2023-02-26 04:56] LABS: BASOPHILS ABSOLUTE AUTO 0.11 K/mm3 (0.00-0.23); BASOPHILS PERCENT AUTO 1 % (0-2); EOSINOPHILS ABSOLUTE AUTO 0.45 K/mm3 (0.00-0.68); EOSINOPHILS PERCENT AUTO 3 % (0-6); Hematocrit 32.6 % (37.0-53.0); Hemoglobin 11.3 g/dL (13.5-17.5); IMMATURE GRAN ABSOLUTE AUTO 0.72 K/mm3 (0.00-0.10); IMMATURE GRAN PERCENT AUTO 5 % (0-1); LYMPHOCYTES PERCENT AUTO 6 % (21-46); MONOCYTES ABSOLUTE AUTO 1.71 K/mm3 (0.16-1.47); MONOCYTES PERCENT AUTO 12 % (4-13); Mean Corpuscular HGB 32.1 pg (26.0-34.0); Mean Corpuscular HGB Conc 34.7 g/dL (31.5-36.5); Mean Corpuscular Volume 93 fL (80-100); Mean Platelet Volume 10.3 fL (9.1-12.4); NEUTROPHILS ABSOLUTE AUTO 10.92 K/mm3 (1.96-9.15); NEUTROPHILS PERCENT AUTO 74 % (41-73); Platelet Count 401 K/mm3 (150-400); RDW Coefficient Variation 13.2 % (11.7-14.2); RDW Standard Deviation 44.6 fL (35.1-46.3); Red Blood Cell Count 3.52 M/mm3 (4.30-5.90); White Blood Cell Count 14.81 K/mm3 (4.00-11.30)
[2023-02-26 05:18] LABS: Albumin, Blood 1.7 g/dL (3.4-5.0); Albumin/Globulin Ratio 0.4 (0.8-1.8); Bilirubin, Total 0.9 mg/dL (0.1-1.0); Bun/Creatinine Ratio 21.4 (12.0-20.0); Calcium, Blood 8.5 mg/dL (8.5-10.1); Creatinine, Blood 0.66 mg/dL (0.60-1.20); Globulin, Blood 4.1 g/dL (2.2-4.0); Potassium, Blood 3.9 mmol/L (3.5-5.5); Total Protein, Blood 5.8 g/dL (6.4-8.2)
--- NOTE | 2023-02-26 16:47 | NUR ---
MET WITH PATIENT AND SPOKE WITH RN. PT WENT FOR A LEAK TEST TO SEE IF HE WOULD BE ABLE TO HAVE HIS NG TUBE DISCONTINUED. PT IS READY FOR IT TO BE OUT AND HE IS READY TO EAT. HE HAS BEEN RECIEVING IV NUTRITION. HE WAS PLESANT DURING OUR VISIT. HE HAD A SITTER AT BEDSIDE DUE TO PULLING AT LINES. I SPOKE TO THE BEDSIDE RN AND ASKED THAT SHE CALL ME IF SHE SEES THE RESULTS OF THE TEST.
--- NOTE | 2023-02-26 19:15 | NUR ---
END OF SHIFT PT A&O TO SELF & FAMILY AT BEDSIDE. PT SPEECH SOFT & MUMBLED, DIFFICULT TO UNDERSTAND AT TIMES. VSS. SPO2 > 92% ON RA, WEARING 1-2L NC PRN. MONITOR SHOWING SR-ST W/ PACs vs AFIB, HR 90s-120s. CARDIZEM GTT INFUSING T/O SHIFT. W/ ORDER TO GIVE PO CARDIZEM & TITRATE OFF CARDIZEM GTT. DR IVEY TO BEDSIDE THIS AM FOR L HIP ARMEN REMOVAL & DRESSING APPLICATION. PT TOLERATED WELL. DR LEVIN THEN TO BEDSIDE W/ PLAN FOR LEAK TEST. PT GONE TO IMAGING FOR LEAK TEST. AFTER TEST RESULTS BACK, DR LEVIN W/ ORDER TO DC NGT THAT WAS SET TO LIS. NGT REMOVED WNL. ORAL HYGENTIST TO BEDSIDE FOR ORAL CARE. W/ ORDER FOR CLEAR LIQUID DIET. PT TOLERATING SIPS OF CLEAR LIQUIDS WELL. PT UP TO BSC MULTIPLE TIMES W/ ATTEMPT FOR BM BUT ONLY HAVING A SMEAR OR NO BM. PT THEN W/ EXTRA LARGE DARK BROWN/BLACK SOLID STOOL THIS EVENING. TREVINO CATH PATENT & DRAINING APRIL URINE. CHICO DRAINS X2 W/ YELLOW URINE. 1:1 SITTER AT BEDSIDE. CLINIMIX GTT INFUSING PER ORDERS.
[2023-02-27] VITALS (7 sets, daily range): BP systolic 110–151; BP diastolic 55–71
--- NOTE | 2023-02-27 06:17 | NUR ---
NOC SHIFT SUMMARY PT ORIENTED X2-3, CONFUSED AND PULLING AT LINES/DRAINS. PT COUGHING WITH ANY PO INTAKE AND PILLS. ST ORDER PLACED AND PT MADE NPO. ORAL CARE COMPLETED. SITTER AT BEDSIDE. PT VITALS STABLE OVERNIGHT, RECEIVED PO CARDIZEM AT START OF SHIFT AND CARDIZEM GTT TURNED OFF @ 2200. AFIB ON TELEMETRY, RATE NORMALIZED TO 90S. DENIES PAIN OR DISCOMFORT. REDNESS NOTED AROUND HAYLEE DRAIN INSERTION SITES. SEROUS DRAINAGE. PT UP W/2 PERSON ASSIST, WALKER, AND GAIT BELT. STAND PIVOT TO CHAIR AND BACK TO BED. TOLERATED WELL. TREVINO PATENT, MORE PINK AND CLOUDY OUTPUT THIS AM NOTED. GOOD OUTPUT AT 1450 ML FROM TREVINO WILL PASS ON TO DAY RN.
[2023-02-27 06:30] LABS: Hematocrit 32.9 % (37.0-53.0); Hemoglobin 11.1 g/dL (13.5-17.5); Mean Corpuscular HGB Conc 33.7 g/dL (31.5-36.5); Mean Corpuscular Volume 95 fL (80-100); Mean Platelet Volume 10.3 fL (9.1-12.4); Platelet Count 386 K/mm3 (150-400); RDW Coefficient Variation 13.2 % (11.7-14.2); RDW Standard Deviation 45.5 fL (35.1-46.3); Red Blood Cell Count 3.47 M/mm3 (4.30-5.90); White Blood Cell Count 14.81 K/mm3 (4.00-11.30)
[2023-02-27 07:03] LABS: Albumin, Blood 1.7 g/dL (3.4-5.0); Albumin/Globulin Ratio 0.4 (0.8-1.8); Bilirubin, Direct 0.4 mg/dL (0.0-0.3); Bilirubin, Indirect 0.3 mg/dL (0.1-0.7); Bilirubin, Total 0.7 mg/dL (0.1-1.0); Bun/Creatinine Ratio 24.4 (12.0-20.0); Calcium, Blood 8.5 mg/dL (8.5-10.1); Creatinine, Blood 0.7 mg/dL (0.60-1.20); Globulin, Blood 4.2 g/dL (2.2-4.0); Potassium, Blood 4.1 mmol/L (3.5-5.5); Total Protein, Blood 5.9 g/dL (6.4-8.2)
[2023-02-27 09:37] LABS: BASOPHILS ABSOLUTE MAN 0.29 K/mm3 (0.00-0.23); BASOPHILS PERCENT MAN 2 % (0-2); EOSINOPHILS ABSOLUTE MAN 0.59 K/mm3 (0.00-0.68); EOSINOPHILS PERCENT MAN 4 % (0-6); LYMPHOCYTES ABSOLUTE MAN 0.88 K/mm3 (0.84-5.20); LYMPHOCYTES PERCENT MAN 6 % (21-46); MONOCYTES ABSOLUTE MAN 1.62 K/mm3 (0.16-1.47); MONOCYTES PERCENT MAN 11 % (4-13); MYELOCYTE ABSOLUTE MAN 0.59 K/mm3 (0.00-0.00); MYELOCYTE PERCENT MAN 4 % (0-0); NEUTROPHILS ABSOLUTE MAN 10.81 K/mm3 (1.96-9.15); SEG NEUTROPHILS PERCENT MAN 73 % (41-73); TOTAL CELLS COUNTED 100
--- NOTE | 2023-02-27 17:42 | NUR ---
END OF SHIFT PT A&O TO SELF & FAMILY AT BEDSIDE. PT PULLING AT LINES THIS AM, REQUIRING REDIRECTING & REMINDING OF CAUTION W/ CORDS/LINES. PT THEN MORE ALERT, PLEASANT & MINDFUL OF CORDS/LINES T/O REST OF SHIFT. PT VSS. SPO2 > 92% ON 1L NC. MONITOR SHOWING WAP W/ PACs. PT SEEN BY ST THIS AM, PT TOLERATING CLEAR LIQUIDS W/ NO STRAW. SURGEON THEN W/ OKAY TO ADVANCE CLEAR LIQUIDS TO FULL LIQUIDS W/ PT TOLERATING WELL. PT UP TO CHAIR & BSC MULTIPLE TIMES THIS SHIFT. PT W/ MULTIPLE LOOSE DARK BROWN/BLACK STOOLS. PT STRENGTH IMPROVING. PT 1-2 PERSON ASSIST W/ GB & FWW. TREVINO CATH DC'd THIS SHIFT. PT VOIDING POST TREVINO DC. R ABD CHICO DRAINS X2 W/ YELLOW OUTPUT.
--- NOTE | 2023-02-27 19:30 | NUR ---
ASSUMPTION OF CARE: PATIENT ALERT AND ORIENTED X 3, OVERALL IMPROVING FROM REPORT, NO SIGNIFICANT CONCERNS AT THIS TIME. DRAINS WITH MILD ERRYTHEMA FROM INSERTION NO ACTIVE SIGNS OF CURRENT INFECTION, MILD SEROSANGINOUS FLUID RECENTLY DRAINED, DENIES CHEST PAIN PRESSURE OR SOB. 1:1 SITTER HE CAN BE IMPULSIVE AND DUE TO SEVERITY OF HARM WITH ABD DRAINS STILL NEEDED. PATIENT COOPERATIVE WITH CARE, VSS AT THIS TIME. CLINIMIX AND ZOSYN INFUSING. PPP. EDUCATED ON DEEP BREATHING AND COUGH, REORIENTED TO ROOM. PATIENT LOOKING FOREWARD TO DISCHARGE.
[2023-02-28 03:30] VITALS: BP 121/61
--- NOTE | 2023-02-28 05:33 | NUR ---
ONLY CHANGES FROM ASSUMPTION OF CARE IS PATIENT IS NO LONGER ON O2 SUPPLEMENTATION SATURATING AROUND 93-94%, NOSE IS VERY SENSITIVE, WILL PLACE BACK ON IF NEEDED. DENIES SONB AT REST. PATIENT HAS NOT SLEPT MUCH DURING THE SHIFT WITH URINARY FREQUENCY. PATIENT DENIES CHEST PAIN PRESSURE OR SOB. STILL HAVING LIQUID STOOL AND MANY VOIDS. PATIENT TOELRATED PILLS WITH APPLESAUCE, 1 AT A TIME.
[2023-02-28 07:14] VITALS: BP 108/63
[2023-02-28 08:49] LABS: BASOPHILS ABSOLUTE AUTO 0.14 K/mm3 (0.00-0.23); BASOPHILS PERCENT AUTO 1 % (0-2); EOSINOPHILS ABSOLUTE AUTO 0.53 K/mm3 (0.00-0.68); EOSINOPHILS PERCENT AUTO 4 % (0-6); Hematocrit 34.9 % (37.0-53.0); Hemoglobin 11.6 g/dL (13.5-17.5); IMMATURE GRAN ABSOLUTE AUTO 1.24 K/mm3 (0.00-0.10); IMMATURE GRAN PERCENT AUTO 9 % (0-1); LYMPHOCYTES ABSOLUTE AUTO 0.86 K/mm3 (0.84-5.20); LYMPHOCYTES PERCENT AUTO 7 % (21-46); MONOCYTES ABSOLUTE AUTO 1.52 K/mm3 (0.16-1.47); MONOCYTES PERCENT AUTO 12 % (4-13); Mean Corpuscular HGB 31.5 pg (26.0-34.0); Mean Corpuscular HGB Conc 33.2 g/dL (31.5-36.5); Mean Corpuscular Volume 95 fL (80-100); Mean Platelet Volume 10.1 fL (9.1-12.4); NEUTROPHILS ABSOLUTE AUTO 8.94 K/mm3 (1.96-9.15); NEUTROPHILS PERCENT AUTO 68 % (41-73); Platelet Count 447 K/mm3 (150-400); RDW Coefficient Variation 13.2 % (11.7-14.2); RDW Standard Deviation 45.7 fL (35.1-46.3); Red Blood Cell Count 3.68 M/mm3 (4.30-5.90); White Blood Cell Count 13.23 K/mm3 (4.00-11.30)
[2023-02-28 12:17] LABS: BAND PERCENT MAN 3 % (0-8); BASOPHILS PERCENT MAN 0 % (0-2); EOSINOPHILS ABSOLUTE MAN 0.26 K/mm3 (0.00-0.68); EOSINOPHILS PERCENT MAN 2 % (0-6); LYMPHOCYTES ABSOLUTE MAN 0.92 K/mm3 (0.84-5.20); LYMPHOCYTES PERCENT MAN 7 % (21-46); METAMYELOCYTE ABSOLUTE MAN 0.26 K/mm3 (0.00-0.00); METAMYELOCYTE PERCENT MAN 2 % (0-0); MONOCYTES ABSOLUTE MAN 1.85 K/mm3 (0.16-1.47); MONOCYTES PERCENT MAN 14 % (4-13); MYELOCYTE ABSOLUTE MAN 0.39 K/mm3 (0.00-0.00); MYELOCYTE PERCENT MAN 3 % (0-0); NEUTROPHILS ABSOLUTE MAN 9.52 K/mm3 (1.96-9.15); SEG NEUTROPHILS PERCENT MAN 69 % (41-73); TOTAL CELLS COUNTED 100
[2023-02-28 12:36] VITALS: BP 134/73
[2023-02-28 16:00] VITALS: BP 143/71
--- NOTE | 2023-02-28 18:01 | NUR ---
shift summary this rn assumed care at 1400. vital signs stable and have remained stable. patient has a one on one sitter due to attempting to pull at lines. patient has been at bedside majority of this afternoon. plan of care is up to date.
[2023-02-28 20:26] VITALS: BP 152/73
[2023-02-28 22:57] VITALS: BP 108/76
[2023-03-01 03:18] VITALS: BP 146/93
[2023-03-01 04:13] LABS: Hemoglobin 11.2 g/dL (13.5-17.5); Mean Corpuscular HGB 31.9 pg (26.0-34.0); Mean Corpuscular HGB Conc 33.9 g/dL (31.5-36.5); Mean Corpuscular Volume 94 fL (80-100); Mean Platelet Volume 10.2 fL (9.1-12.4); Platelet Count 430 K/mm3 (150-400); RDW Coefficient Variation 13.2 % (11.7-14.2); RDW Standard Deviation 45.1 fL (35.1-46.3); Red Blood Cell Count 3.51 M/mm3 (4.30-5.90); White Blood Cell Count 13.71 K/mm3 (4.00-11.30)
--- NOTE | 2023-03-01 04:35 | NUR ---
SHIFT SUMMARY PT ALERT AND ORIENTED TO SELF AND HAS HX OF DEMENTIA. HE HAS BEEN UP AND DOWN ALL NIGHT WANTING TO GO HOME AND UNSURE OF WHERE HE IS, AND HE HAS BEEN PULLING AT HIS LINES. HE HAS 1:1 SITTER FOR HIS SAFETY AND REDIRECTION. PT ON RA AND MAINTAINING 02 SATURATION ABOVE 92%, SOB W/EXERTION AT TIMES. PT USES URINAL WITH ASSISTANCE AND HAS OCCASIONAL INCONTINENT EPISODES, BRIEF IN PLACE AND CHANGE PRN. PT HAS 2 CHICO DRAINS DRAINING MINIMAL YELLOW FLUID, DRESSING C/D/I. DRESSING TO L HIP FROM PRIOR HIP SURGERY C/D/I/. POWERGLIDE TO DAVID PATENT AND INFUSING PER EMAR. PT HAS DENIED PAIN ALL SHIFT. PT TOLERATES MEDS WHOLE WITH APPLESAUCE WELL. PT CURRENTLY RESTING IN BED, NORMAL/SYMMETRICAL RISE AND FALL OF CHEST AND RESPIRATORY RATE OF 16, 02 SATURATION 93%. CALL LIGHT WITHIN REACH AND 1:1 SITTER IN ROOM WITH PT. OF CHEST
[2023-03-01 04:39] LABS: Albumin, Blood 1.9 g/dL (3.4-5.0); Albumin/Globulin Ratio 0.4 (0.8-1.8); Bilirubin, Total 0.6 mg/dL (0.1-1.0); Bun/Creatinine Ratio 20.3 (12.0-20.0); Calcium, Blood 8.7 mg/dL (8.5-10.1); Creatinine, Blood 0.69 mg/dL (0.60-1.20); Globulin, Blood 4.5 g/dL (2.2-4.0); Potassium, Blood 4.3 mmol/L (3.5-5.5); Total Protein, Blood 6.4 g/dL (6.4-8.2)
[2023-03-01 05:00] LABS: BAND PERCENT MAN 3 % (0-8); BASOPHILS ABSOLUTE MAN 0.27 K/mm3 (0.00-0.23); BASOPHILS PERCENT MAN 2 % (0-2); EOSINOPHILS ABSOLUTE MAN 0.54 K/mm3 (0.00-0.68); EOSINOPHILS PERCENT MAN 4 % (0-6); LYMPHOCYTES ABSOLUTE MAN 0.82 K/mm3 (0.84-5.20); LYMPHOCYTES PERCENT MAN 6 % (21-46); METAMYELOCYTE ABSOLUTE MAN 0.41 K/mm3 (0.00-0.00); METAMYELOCYTE PERCENT MAN 3 % (0-0); MONOCYTES ABSOLUTE MAN 1.23 K/mm3 (0.16-1.47); MONOCYTES PERCENT MAN 9 % (4-13); MYELOCYTE ABSOLUTE MAN 0.68 K/mm3 (0.00-0.00); MYELOCYTE PERCENT MAN 5 % (0-0); NEUTROPHILS ABSOLUTE MAN 9.73 K/mm3 (1.96-9.15); SEG NEUTROPHILS PERCENT MAN 68 % (41-73); TOTAL CELLS COUNTED 100
[2023-03-01 07:51] VITALS: BP 136/63
[2023-03-01 15:56] VITALS: BP 117/63
--- NOTE | 2023-03-01 17:07 | NUR ---
shift summary this rn assumed care at 0700. vital signs have been stable this shift. patient at the beginning of shift aspirated on breakfast, patient suctioned from respiratory care. speech in to see patient and patient switched back to full liquid diet. takes med whole with applesauce. see shift assessment for further detials. patient is alert and oriented to self and family. patient has history of dementia. patient does not have a 1:1 sitter anymore and has not been pulling at iv or trying to get out of bed. has been at bedside intermittently throughout the day. patient received bed bath. plan is for patient to be discharged with home health.
[2023-03-01 19:19] VITALS: BP 158/77
[2023-03-02 03:45] VITALS: BP 139/63
[2023-03-02 05:45] LABS: Hematocrit 33.8 % (37.0-53.0); Hemoglobin 11.3 g/dL (13.5-17.5); Mean Corpuscular HGB 31.5 pg (26.0-34.0); Mean Corpuscular HGB Conc 33.4 g/dL (31.5-36.5); Mean Corpuscular Volume 94 fL (80-100); Mean Platelet Volume 10.3 fL (9.1-12.4); Platelet Count 449 K/mm3 (150-400); RDW Coefficient Variation 13.2 % (11.7-14.2); RDW Standard Deviation 45.5 fL (35.1-46.3); Red Blood Cell Count 3.59 M/mm3 (4.30-5.90); White Blood Cell Count 14.17 K/mm3 (4.00-11.30)
--- NOTE | 2023-03-02 06:01 | NUR ---
SHIFT SUMMARY NOC. PT TRANSFERED FROM [facility] TO SURGICAL ROOM 224. PT ARRIVED AT 0253 AND WAS RESTING WITH EYES CLOSED THROUGH TRANSFER PROCESS. REPORT RECEIVED FROM [employer]FORMATION [employer] SYSTEMS INSTRUCTOR. PT VOIDING URINE VIA URINAL AND TRIED TO GET OUT OF BED X1. BED ALARM PLACED FOR SAFETY. PT DENIES PAIN AND VITAL SIGNS STABLE. PT RESTED WITH CALL LIGHT IN REACH.
[2023-03-02 06:19] LABS: Alanine Aminotransfer (ALT/SGP 121 U/L (12-78); Albumin, Blood 1.9 g/dL (3.4-5.0); Albumin/Globulin Ratio 0.4 (0.8-1.8); Alk Phos 65 U/L (50-136); Anion Gap 5 mmol/L (6-16); Aspartate Aminotrans (AST/SGOT 67 U/L (12-37); Bilirubin, Total 0.4 mg/dL (0.1-1.0); Blood Urea Nitrogen 15 mg/dL (8-24); Bun/Creatinine Ratio 25.1 (12.0-20.0); CO2, Blood 24 mmol/L (21-32); Calcium, Blood 8.7 mg/dL (8.5-10.1); Chloride, Blood 109 mmol/L (98-108); Globulin, Blood 4.4 g/dL (2.2-4.0); Glomerular Filtration Rate 94 (60-); Glucose, Blood 155 mg/dL (70-99); Potassium, Blood 4.3 mmol/L (3.5-5.5); Sodium, Blood 138 mmol/L (136-145); Total Protein, Blood 6.3 g/dL (6.4-8.2); Triglycerides 121 mg/dL (30-160)
--- NOTE | 2023-03-02 06:24 | NUR ---
SHIFT SUMMARY PT IS ALERT AND ORIENTED TO SELF & FAMILY, HX OF DEMENTIA. HOH. WAGNER. PT ATTEMPTED TO GET OUT OF BED A COUPLE TIMES THIS SHIFT, BED ALARM WAS UTILIZED FOR PT'S SAFETY. HE SLEPT THE MAJORITY OF THE SHIFT TONIGHT. HE WAS ON RA AND MAINTAINED 02 SATURATION ABOVE 92%, SOB W/EXERTION. CHICO DRAINS REMOVED 03/01/23 ON DAY SHIFT, DRESSING C/D/I. DRESSING TO L HIP FROM HX OF RECENT HIP SURGERY C/D/I. PT DENIED CHEST PAIN/PRESSURE. PT TURNED EVERY 2 HOURS. CALL LIGHT ALWAYS WITHIN REACH OF PT. HE TRANSFERRED TO SURGICAL UNIT AT APPROXIMATELY 0300 THIS MORNING. PT WAS TRANSFERRED WITH ALL OF HIS BELONGINGS. HE WAS STABLE AT TIME OF TRANSFER.
[2023-03-02 06:34] LABS: BAND PERCENT MAN 3 % (0-8); BASOPHILS ABSOLUTE MAN 0.28 K/mm3 (0.00-0.23); BASOPHILS PERCENT MAN 2 % (0-2); EOSINOPHILS PERCENT MAN 0 % (0-6); LYMPHOCYTES ABSOLUTE MAN 0.56 K/mm3 (0.84-5.20); LYMPHOCYTES PERCENT MAN 4 % (21-46); MONOCYTES ABSOLUTE MAN 0.56 K/mm3 (0.16-1.47); MONOCYTES PERCENT MAN 4 % (4-13); MYELOCYTE ABSOLUTE MAN 0.56 K/mm3 (0.00-0.00); MYELOCYTE PERCENT MAN 4 % (0-0); NEUTROPHILS ABSOLUTE MAN 12.18 K/mm3 (1.96-9.15); SEG NEUTROPHILS PERCENT MAN 83 % (41-73); TOTAL CELLS COUNTED 100
[2023-03-02 07:29] VITALS: BP 134/60
--- NOTE | 2023-03-02 16:22 | NUR ---
SHIFT SUMMARY PT A&OX2/SELF-FAMILY, PLEASANT & COOPERATIVE WITH CARE, FOLLOWS DIRECTIONS, AT BEDSIDE. VSS/RA. DAVID MECH SOFT DIET/DYSPHAGIA PRECAUTIONS/UP TO CHAIR FOR MEALS/FULL ASSIST W/ENC TO INTAKE AND MEDS W/APPLESAUCE. VOIDING/URINAL W/ASSIST. AMB STAND PIVOT TO CHAIR/BED WITH 2 PP W/GB AND CUES. DENIES PAIN. WILL REPORT TO ONCOMING NOC RN.
[2023-03-02 16:56] VITALS: BP 135/65
[2023-03-02 19:22] VITALS: BP 125/68
[2023-03-03 02:05] VITALS: BP 131/65
[2023-03-03 04:07] LABS: BASOPHILS ABSOLUTE AUTO 0.11 K/mm3 (0.00-0.23); BASOPHILS PERCENT AUTO 1 % (0-2); EOSINOPHILS ABSOLUTE AUTO 0.32 K/mm3 (0.00-0.68); EOSINOPHILS PERCENT AUTO 2 % (0-6); Hemoglobin 11.2 g/dL (13.5-17.5); IMMATURE GRAN ABSOLUTE AUTO 0.71 K/mm3 (0.00-0.10); IMMATURE GRAN PERCENT AUTO 5 % (0-1); LYMPHOCYTES PERCENT AUTO 5 % (21-46); MONOCYTES ABSOLUTE AUTO 1.55 K/mm3 (0.16-1.47); MONOCYTES PERCENT AUTO 10 % (4-13); Mean Corpuscular HGB Conc 33.9 g/dL (31.5-36.5); Mean Corpuscular Volume 94 fL (80-100); Mean Platelet Volume 10.7 fL (9.1-12.4); NEUTROPHILS PERCENT AUTO 78 % (41-73); Platelet Count 470 K/mm3 (150-400); RDW Coefficient Variation 13.3 % (11.7-14.2); RDW Standard Deviation 45.7 fL (35.1-46.3); White Blood Cell Count 15.59 K/mm3 (4.00-11.30)
[2023-03-03 04:31] LABS: Bun/Creatinine Ratio 22.6 (12.0-20.0); Calcium, Blood 8.7 mg/dL (8.5-10.1); Creatinine, Blood 0.62 mg/dL (0.60-1.20); Potassium, Blood 4.3 mmol/L (3.5-5.5)
--- NOTE | 2023-03-03 06:48 | NUR ---
SHIFT SUMMARY NOC. PT A/O TO SELF, FAMILY, AND PLACE. PT'S ABDOMINAL LAP SITES ARE C/D/I, AND LEFT HIP AQUACEL IS C/D/I. PT ATTEMPTED TO GET OUT MULTIPLE TIMES, BED ALARM SET FOR SAFETY. PT IS CALM AND COOPERATIVE WITH CARE BUT FORGETFUL OF LIMITATIONS. PT DENIES PAIN AND DID NOT NEED PRN MEDICATIONS. PT ON DYSPHAGIA/ASPIRATION PRECAUTIONS AND HAD NO EPISODES OF ISSUES THIS SHIFT. PT RESTED INTERMITTENTLY WITH EYES CLOSED AND CALLL LIGHT IN REACH.
[2023-03-03 07:01] VITALS: BP 137/68
--- NOTE | 2023-03-03 16:12 | NUR ---
SHIFT SUMMARY A&OX2/SELF-FAMILY, PLEASANT & COOPERATIVE WITH CARE, FOLLOWS DIRECTIONS, AT BEDSIDE. VSS/RA. DAVID MECH SOFT DIET/DYSPHAGIA PRECAUTIONS/UP TO CHAIR FOR MEALS/FULL ASSIST W/ENC TO INTAKE AND MEDS W/APPLESAUCE. VOIDING/URINAL W/ASSIST. AMB 1 PP MOD ASSIST W/FWW, GB & CUES. DENIES PAIN. WILL REPORT TO ONCOMING NOC RN.
[2023-03-03 20:30] VITALS: BP 116/65
[2023-03-04 04:17] LABS: BASOPHILS ABSOLUTE AUTO 0.09 K/mm3 (0.00-0.23); BASOPHILS PERCENT AUTO 1 % (0-2); EOSINOPHILS ABSOLUTE AUTO 0.36 K/mm3 (0.00-0.68); EOSINOPHILS PERCENT AUTO 3 % (0-6); Hematocrit 34.1 % (37.0-53.0); Hemoglobin 11.2 g/dL (13.5-17.5); IMMATURE GRAN PERCENT AUTO 4 % (0-1); LYMPHOCYTES ABSOLUTE AUTO 0.97 K/mm3 (0.84-5.20); LYMPHOCYTES PERCENT AUTO 8 % (21-46); MONOCYTES ABSOLUTE AUTO 1.26 K/mm3 (0.16-1.47); MONOCYTES PERCENT AUTO 10 % (4-13); Mean Corpuscular HGB 31.1 pg (26.0-34.0); Mean Corpuscular HGB Conc 32.8 g/dL (31.5-36.5); Mean Corpuscular Volume 95 fL (80-100); Mean Platelet Volume 10.3 fL (9.1-12.4); NEUTROPHILS ABSOLUTE AUTO 9.67 K/mm3 (1.96-9.15); NEUTROPHILS PERCENT AUTO 75 % (41-73); Platelet Count 504 K/mm3 (150-400); RDW Coefficient Variation 13.2 % (11.7-14.2); RDW Standard Deviation 45.5 fL (35.1-46.3); White Blood Cell Count 12.85 K/mm3 (4.00-11.30)
[2023-03-04 04:33] LABS: Bun/Creatinine Ratio 19.6 (12.0-20.0); Calcium, Blood 8.8 mg/dL (8.5-10.1); Creatinine, Blood 0.66 mg/dL (0.60-1.20); Potassium, Blood 4.1 mmol/L (3.5-5.5)
[2023-03-04 05:10] VITALS: BP 130/71
[2023-03-04 07:34] VITALS: BP 113/97
[2023-03-04 07:35] VITALS: BP 123/62
--- NOTE | 2023-03-04 07:51 | NUR ---
SHIFT SUMMARY NOC. PT A/O TO SELF AND FAMILY. PT'S ABDOMINAL LAP SITES ARE C/D/I. PT IS FORGETFUL OF LIMITITATIONS, BED ALARM SET. PT'S SON AND TOOK TURNS STAYING WITH PT THROUGHOUT THE NIGHT. PT DENIES PAIN AND VOIDS USING THE URINAL, TOLERATING PO INTAKE. DYSPHAGIA PROCAUTIONS FOLLOWED FOR PILLS AND PO FLUIDS. PT RESTED WITH EYES CLOSED AND CALL LIGHT IN REACH.
[2023-03-04] MEDS ORDERED: PANT40 PO (11:03)
[2023-03-04] MEDS ORDERED: DILT180 PO (11:03)
[2023-03-04] MEDS ORDERED: SUCR1 PO (11:04)
== END 2023-03-04 15:10 | disposition home health service (06) | DRG 853 ==
LOC: ER 05:59 → MEDS 12:09 → PCU 12:09 → MEDS 14:07 → PCU 02-21 08:59 → ICUE 02-21 10:37 → PCU 02-22 23:24 → SURS 03-02 02:50
PROVIDERS: Emergency Medicine; Family Medicine; Hospitalist; Student in an Organized Health Care Education/Training Program; Surgery; ADMIT Hospitalist
PROC: 0D9W40Z Drainage of Peritoneum with Drainage Device, Percutaneous Endoscopic Approach (ICD-10-PCS; 2023-02-21)
PROC: 8E0W4CZ Robotic Assisted Procedure of Trunk Region, Percutaneous Endoscopic Approach (ICD-10-PCS; 2023-02-21)
PROC: 3E03329 Introduction of Other Anti-infective into Peripheral Vein, Percutaneous Approach (ICD-10-PCS; 2023-02-21)
PROC: 0DU947Z Supplement Duodenum with Autologous Tissue Substitute, Percutaneous Endoscopic Approach (ICD-10-PCS; principal; 2023-02-21 11:30)
PROC: 0DH67UZ Insertion of Feeding Device into Stomach, Via Natural or Artificial Opening (ICD-10-PCS; 2023-02-24)
DX: A41.9 Sepsis, unspecified organism (principal); K26.1 Acute duodenal ulcer with perforation; K65.0 Generalized (acute) peritonitis; N13.8 Other obstructive and reflux uropathy; G93.40 Encephalopathy, unspecified; I48.91 Unspecified atrial fibrillation; N40.1 Benign prostatic hyperplasia with lower urinary tract symptoms; F03.90 Unspecified dementia, unspecified severity, without behavioral disturbance, psychotic disturbance, mood disturbance, and anxiety; J44.9 Chronic obstructive pulmonary disease, unspecified; I48.0 Paroxysmal atrial fibrillation; E78.5 Hyperlipidemia, unspecified; E66.3 Overweight; E66.9 Obesity, unspecified; E11.42 Type 2 diabetes mellitus with diabetic polyneuropathy; S72.012D Unspecified intracapsular fracture of left femur, subsequent encounter for closed fracture with routine healing; W18.30XD Fall on same level, unspecified, subsequent encounter; Z79.899 Other long term (current) drug therapy; Z85.46 Personal history of malignant neoplasm of prostate; Z90.49 Acquired absence of other specified parts of digestive tract; Z98.890 Other specified postprocedural states; Z87.891 Personal history of nicotine dependence; Z11.52 Encounter for screening for COVID-19; Z68.29 Body mass index [BMI] 29.0-29.9, adult
CPT/HCPCS: 0202U; 0241U; 36415; 51701; 51702; 70450; 71045; 71260; 74177; 74240; 80048; 80053; 81001; 82248; 82803; 82947; 83605; 83735; 83880; 84100; 84145; 84443; 84478; 84484; 85025; 85027; 85379; 85610; 85651; 85730; 86140; 86850; 86900; 86901; 87040; 87077; 92526; 92610; 93005; 93010; 93306; 93970; 94640; 94664; 94760; 94762; 96361; 96365; 96367; 96375; 97110; 97163; 97530; 99285-25; A9270; C1751; C9113; G0378; J0696; J1450; J1650; J2371; J2405; J2543; J2704; J3010; J7030; J7050; J7120; Q9967

== ENCOUNTER → 2023-03-28 | Outpatient (CLI) | payer OTHER ==
[~2023-03-28] MED LIST changes: +DILT180 PO; +PANT40 PO; +SUCR1 PO; +SULTRIDS PO
== END ==
LOC: LAB SHORT 15:30 → LAB 15:30
DX: C44.319 Basal cell carcinoma of skin of other parts of face (principal)
CPT/HCPCS: 88305